=== PATIENT | male | born 1985 | race Caucasian/White ===

== ENCOUNTER 2016-10-27 02:23 | Emergency (ER) | payer OTHER ==
--- NOTE | ~2016-10-27 | CR281 ---
[facility] A Service of [facility] & [facility] / [facility] RADIOLOGY TEXT RESULTS PATIENT: SHAHNAZ HURT LOCATION: [facility] : 84 UNIT #: [id number] AGE: [address]: Augusto Berman MD SEX: M ORDER DR: [id number] [facility] [address] [place], [place] [address] [id number] E MR#: [id number] Acc #: [id number] NAME: SHAHNAZ HURT : 1985 SEX: M STUDY DATE/TIME: 10/27/2016 0211 UNIT: [facility] ROOM: STUDY DESCRIPTION: CR Wrist Min 3 View Lt Attending Physician: Augusto Berman M.D. Ordering Physician: Augusto Berman M.D. Primary Care Physician: Artemio Morel Jr., M.D. MEDICAL IMAGING REPORT This report is preliminary unless electronic signature is present EXAM Left wrist on 10/27/2016 at 0211 INDICATIONS Patient tripped and fell while walking down the street. Patient has pain in the wrist and forearm. Injury this evening. FINDINGS 3 views of the left wrist were obtained. No fracture or malalignment is seen in the wrist. The soft tissues are normal. There is a comminuted ulnar fracture in the diaphysis. IMPRESSION Ulnar diaphysis fracture. The wrist is negative. Dictated by... Terry Cordova Jr., M.D. THIS IS AN ELECTRONICALLY VERIFIED REPORT Terry Cordova Jr., M.D. at 10/28/2016 6:40 AM Hannah TD: 10/27/2016 12:39 JOB #: [id number] MEDICAL IMAGING REPORT COPY
--- NOTE | ~2016-10-27 | CT52 ---
[facility]. [facility] A Service of [facility] & [facility] RADIOLOGY TEXT RESULTS PATIENT: SHAHNAZ HURT LOCATION: [facility] : 84 UNIT #: [id number] AGE: [address]: Augusto Berman MD SEX: M ORDER DR: [id number] [facility] [address] [place], [place] [address] [id number] E MR#: [id number] Acc #: [id number] NAME: SHAHNAZ HURT : 1985 SEX: M STUDY DATE/TIME: 10/27/2016 02:04 UNIT: [facility] ROOM: STUDY DESCRIPTION: CT Cervical Spine Wo Cont Attending Physician: Augusto Berman M.D. Ordering Physician: Augusto Berman M.D. Primary Care Physician: Artemio Morel Jr., M.D. MEDICAL IMAGING REPORT This report is preliminary unless electronic signature is present EXAM Cervical spine CT, 10/27/2016 at 0204 hours. INDICATION Patient fell while walking down the street. Laceration to the posterior left side of the head. Posterior neck pain and headache. TECHNIQUE Axial images were obtained through the cervical spine without contrast. Multiplanar reformats were obtained. No comparison. This CT exam was performed with one or more of the following radiation dose reduction techniques: automatic exposure control, adjustment of mA and/or kV according to patient size, and iterative reconstruction. FINDINGS No cervical spine fractures are seen. No significant disc bulging or herniation is identified. There is no central canal or neural foraminal stenosis. No subluxation is noted on the sagittal images. The patient is positioned at an oblique angle. Additionally, there is asymmetry between the lateral masses of C1 and the dens. No fracture is seen. This may be due to position of the head relative to the spine. Ligamentous injury is not completely excluded. Exam is otherwise negative. IMPRESSION There is asymmetry of the C1/C2 articulation. No fractures are identified. The patient is positioned somewhat obliquely in the scanner and this may be a positional finding, possibly related to some turning of the head relative to the spine. This could also be related to ligamentous injury. No fractures are seen on the exam. Cervical alignment is otherwise normal. [facility] A Service of [facility] & [facility] RADIOLOGY TEXT RESULTS PATIENT: SHAHNAZ HURT [id number] 84 UNIT #: [id number] AGE: [address]: Augusto Berman MD SEX: M ORDER DR: STAT * RESULT Dictated by... Terry Cordova Jr., M.D. THIS IS AN ELECTRONICALLY VERIFIED REPORT Terry Cordova Jr., M.D. at 10/28/2016 6:40 AM RHIANNA/juan alberto TD: 10/27/2016 02:36 JOB #: [id number] MEDICAL IMAGING REPORT COPY
--- NOTE | ~2016-10-27 | EKG ---
PATIENT: SHAHNAZ HURT UNIT #: [id number] Ventricular Rate: 99 BPM Atrial Rate: 99 BPM P-R Interval: 130 ms QRS Duration: 86 ms Q-T Interval: 350 ms QTC Calculation(Bezet): 449 ms P [place]: 66 degrees Calculated R [place]: 17 degrees Calculated T [place]: 38 degrees Diagnosis Line: Normal sinus rhythm Diagnosis Line: Normal ECG Diagnosis Line: No previous ECGs available Diagnosis Line: Confirmed by ARIC BRADY MD ([id number]) on Diagnosis Line: 10/28/2016 4:06:23 PM INTERPRETING MD: CAITLYN BENAVIDES
--- NOTE | ~2016-10-27 | CR132 ---
[facility] A Service of [facility] & [facility] RADIOLOGY TEXT RESULTS PATIENT: SHAHNAZ HURT LOCATION: [facility] : 84 UNIT #: [id number] AGE: [address]: Augusto Berman MD SEX: M ORDER DR: [id number] [facility] [address] [place], [place] [address] [id number] E MR#: [id number] Acc #: [id number] NAME: SHAHNAZ HURT : 1985 SEX: M STUDY DATE/TIME: 10/27/2016 02:15 UNIT: [facility] ROOM: STUDY DESCRIPTION: CR Forearm 2 View Lt Attending Physician: Augusto Berman M.D. Ordering Physician: Augusto Berman M.D. Primary Care Physician: Artemio Morel Jr., M.D. MEDICAL IMAGING REPORT This report is preliminary unless electronic signature is present EXAM Left forearm 10/27/2016 at 02:15 INDICATION Forearm pain after falling while walking down the street tonight. FINDINGS 2 views of the forearm were obtained. There is a comminuted fracture of the diaphysis of the ulna near its midportion. Minimal displacement is seen by about one-quarter shaft width. No other fractures are identified. IMPRESSION Comminuted mildly displaced fracture near the mid shaft of the ulna. Dictated by... Terry Cordova Jr., M.D. THIS IS AN ELECTRONICALLY VERIFIED REPORT Terry Cordova Jr., M.D. at 10/28/2016 6:40 AM RHIANNA/brenda TD: 10/27/2016 12:46 JOB #: [id number] MEDICAL IMAGING REPORT COPY
--- NOTE | ~2016-10-27 | CT71 ---
[facility] A Service of [facility] RADIOLOGY TEXT RESULTS PATIENT: SHAHNAZ HURT LOCATION: [facility] : 84 UNIT #: [id number] AGE: [address]: Augusto Berman MD SEX: M ORDER DR: [id number] [facility] [address] [facility] [address] [facility] [address]. [address] [id number] E MR#: [id number] Acc #: [id number] NAME: SHAHNAZ HURT : 1985 SEX: M STUDY DATE/TIME: 10/27/2016 UNIT: [facility] ROOM: STUDY DESCRIPTION: CT Head Wo Contrast Attending Physician: Augusto Berman M.D. Ordering Physician: Augusto Berman M.D. Primary Care Physician: Artemio Morel Jr., M.D. MEDICAL IMAGING REPORT This report is preliminary unless electronic signature is present EXAM Head CT, 10/27/2016 at 0157. HISTORY Confusion. Patient fell while walking down the street tonight. Large laceration to the scalp. Headache. TECHNIQUE Axial images were obtained from the base to the vertex without contrast. This CT exam was performed with one or more of the following radiation dose reduction techniques: automatic exposure control, adjustment of mA and/or kV according to patient size, and iterative reconstruction.. COMPARISON STUDIES No comparison. FINDINGS No skull fracture. Ventricular size and configuration are within normal limits. No acute infarct or hemorrhage is seen. There are no masses. Scalp lacerations are noted posteriorly, and there is a scalp hematoma in the left occipital region, measuring about 3.1 x 1.1 cm. IMPRESSION Left posterior scalp hematoma and laceration. Otherwise, negative head CT. Dictated by... Terry Cordova Jr., M.D. THIS IS AN ELECTRONICALLY VERIFIED REPORT Terry Cordova Jr., M.D. at 10/28/2016 6:40 AM RHIANNA/yoel [facility] A Service of [facility] RADIOLOGY TEXT RESULTS PATIENT: SHAHNAZ HURT LOCATION: [facility] : 84 UNIT #: [id number] AGE: [address]: Augusto Berman MD SEX: M ORDER DR: TD: 10/27/2016 13:08 JOB #: [id number] MEDICAL IMAGING REPORT COPY
[2016-10-27 02:02] LABS: BASOPHIL# 0.1 X10e3 (0-0.3); BASOPHIL% 0.7 % (0-2.5); EOSINOPHIL# 0.1 X10e3 (0-0.7); EOSINOPHIL% 0.6 % (0.0-7.0); HEMOGLOBIN 15.4 gm/dL (13.0-16.0); LYMPHOCYTE# 1.8 X10e3 (1.0-3.5); LYMPHOCYTE% 12.6 % (17.0-45.0); MEAN CELL VOLUME 88.6 FL (83-96); MEAN CORPUSCULAR HEMOGLOBIN 30.3 PG (28-34); MEAN CORPUSCULAR HGB CONC 34.2 g/dL (30-36); MEAN PLATELET VOLUME 8.2 FL (6.5-11.5); MONOCYTE% 7.3 % (3.0-12.0); NEUTROPHIL# 11.1 X10e3 (1.5-7.1); NEUTROPHIL% 78.8 % (40-75); PLATELET COUNT 290 X10e3 (140-420); RED BLOOD COUNT 5.08 X10e (3.90-5.60); RED CELL DISTRIBUTION WIDTH 13.5 % (11.0-15.5); WHITE BLOOD COUNT 14.1 X10e3 (4.0-10.5)
[2016-10-27 02:03] LABS: DIFF IND NO
[2016-10-27 02:17] LABS: PARTIAL THROMBOPLASTIN TIME 27.8 SECONDS (23.5-31.3); PROTHROMBIN TIME (PATIENT) 10.8 SECONDS (9.6-11.5)
[~2016-10-27 02:23] MED LIST: COGENTIN; GEODAN; LITHIUM
[2016-10-27 02:31] LABS: ALBUMIN SERUM 4.2 g/dL (3.5-5.0); ALKALINE PHOSPHATASE 73 U/L (32-92); ALT (SGPT) 16 U/L (10-40); AST (SGOT) 21 U/L (10-42); BILIRUBIN,TOTAL 0.5 mg/dL (0.2-2.0); BLOOD UREA NITROGEN 8 mg/dL (9-23); BUN/CREATININE RATIO 6.66; CALCIUM SERUM 8.5 mg/dL (8.4-10.2); CARBON DIOXIDE 30 mmol/L (22-31); CHLORIDE 103 mmol/L (100-111); CREATININE SERUM 1.2 mg/dL (0.6-1.4); GLOM FILT RATE Estimated ABOVE60 mL/min (>60); GLUCOSE FASTING 114 mg/dL (70-110); POTASSIUM 3.6 mmol/L (3.5-5.1); SODIUM 135 mmol/L (135-145)
[2016-10-27 04:43] LABS: AMPHETAMINE POS (NEG); BARBITURATES NEG (NEG); BENZODIAZEPINES NEG (NEG); COCAINE NEG (NEG); MARIJUANA POS (NEG); OPIATES NEG (NEG); TRICYCLIC ANTIDEPRESSANTS NEG (NEG); U METHADONE NEG (NEG)
== END 2016-10-27 07:50 | disposition home or self-care (01) ==
LOC: CED 02:23
PROVIDERS: Emergency Medicine
DX: S52.252A Displaced comminuted fracture of shaft of ulna, left arm, initial encounter for closed fracture (principal); S01.01XA Laceration without foreign body of scalp, initial encounter; F31.9 Bipolar disorder, unspecified; W18.30XA Fall on same level, unspecified, initial encounter
CPT/HCPCS: 12035; 36415; 70450; 72125; 73090; 73110; 80053; 80178; 80307; 85025; 85610; 85730; 93005; 99284; G0480

== ENCOUNTER 2016-11-10 16:12 | Emergency (ER) | payer OTHER | END 2016-11-10 17:17 | disposition home or self-care (01) | LOC: CFTX 16:12 | DX: S01.01XD Laceration without foreign body of scalp, subsequent encounter (principal); F17.210 Nicotine dependence, cigarettes, uncomplicated; F20.9 Schizophrenia, unspecified; X58.XXXD Exposure to other specified factors, subsequent encounter | CPT/HCPCS: 99281 ==

== ENCOUNTER 2017-01-03 19:00 | Inpatient (IN) | payer OTHER ==
--- NOTE | ~2017-01-03 | HP ---
Unit #: [id number] #: [id number] Patient: SHAHNAZ HURT [id number] [place] [address] [id number] I MR#: [id number] NAME: SHAHNAZ HURT ROOM: P257 Age: 31 Sex: M Admission Date: 01/03/2017 : 1985 Attending Physician: Ted Gaffney M.D. Admitting Physician: Ted Gaffney M.D. Primary Care Physician: Primary Care Physician No HISTORY AND PHYSICAL HISTORY OF PRESENT ILLNESS The patient is a 31-year-old male, who states that his parents had a mental inquest warrant taken out on him although he states he does not know why. PAST MEDICAL HISTORY Significant for depression. PAST SURGICAL HISTORY None. ALLERGIES None. SOCIAL HISTORY Positive for smoking, negative for alcohol, positive for methamphetamine. FAMILY HISTORY Noncontributory. REVIEW OF SYSTEMS CONSTITUTIONAL: No fever or chills. HEENT: Denies any sore throat, ear pain or runny nose. CARDIOVASCULAR: Denies chest pain, irregular heart rhythm or palpitations. CHEST: Denies shortness of breath or cough. No hemoptysis. GASTROINTESTINAL: Denies nausea, vomiting, diarrhea or chronic constipation. ENDOCRINE: Denies history of increased thirst or urination. No recent significant weight loss or gain. GENITOURINARY: Denies dysuria, frequency, or hematuria. SKIN: Denies any rashes. HEMATOLOGIC: Denies history of increased bleeding or bruising. MUSCULOSKELETAL: Denies any hot, swollen joints. No generalized muscle pain. NEUROLOGIC: Denies problems with vision or speech. No frequent, severe headaches. No numbness, tingling or weakness in any extremities. Denies loss of bladder or bowel control. CURRENT MEDICATIONS 1. Abilify 30 mg p.o. daily 2. Hydroxyzine 25 mg p.o. daily p.r.n. 3. [place] 150 mg p.o. q.h.s. 4. [place] 600 mg p.o. twice daily Unit #: [id number] #: [id number] Patient: SHAHNAZ HURT 5. Flexeril 10 mg p.o. three times daily p.r.n. PHYSICAL EXAMINATION GENERAL: Alert, oriented, and no acute distress. VITAL SIGNS: Temperature 97.7, heart rate 93, respirations 16, and blood pressure 105/68. HEIGHT: 5 feet 8 inches. WEIGHT: 180 pounds. SKIN: Warm and dry without rash or lesion. Multiple tattoos right arm, left arm, right subscapular area, left hand. HEENT: Normocephalic. TMs not viewed. Oral and nasal passages clear. Conjunctivae clear. PERRLA. EOMs intact. NECK: Supple without lymphadenopathy or thyromegaly. HEART: Regular rate and rhythm without murmur. LUNGS: Clear. ABDOMEN: Soft, nontender. : Not done. EXTREMITIES: No evidence of cyanosis, clubbing or edema. Moves all without focal deficit. NEUROLOGICAL: Grossly within normal limits. Cranial Nerves: II: Visual triplett are intact. III, IV AND : Extraocular movements are intact. Pupils are equal, round and reactive to light. V: Facial sensation is grossly normal. VII: Facial movements and expression are normal. VIII: Auditory acuity grossly intact. IX, X: Uvula is midline. Phonation is normal. XI: Patient shrugs shoulders and turns head normally. XII: Tongue protrudes in the midline. Sensory and Motor Function: Sensory and motor sensation is grossly normal. Motor: moves all extremities well. Coordination: Gait is normal. Deep Tendon Reflexes: Intact. IMPRESSION Psychiatric admission. RECOMMENDATIONS Psychiatric, per psychiatrist. MEDICAL No contraindications to participating in facility's activities. MEDICAL PROGNOSIS Good. Dictated by... Spike Kahn/dina TD: 01/05/2017 09:18 JOB #: [id number] Unit #: [id number] #: [id number] Patient: SHAHNAZ HURT HISTORY AND PHYSICAL Page 1 of 1 X Macrina Salazar APR X HISTORY AND PHYSICAL
--- NOTE | ~2017-01-03 | PN ---
Unit #: [id number] #: [id number] Patient: DERRICK HURT [id number] [facility] [address] [place] [address] [id number] I MR#: [id number] NAME: DERRICK HURT ROOM: P257 Age: 31 Sex: M Admission Date: 01/03/2017 : 1985 Attending Physician: Ted Gaffney M.D. Admitting Physician: Ted Gaffney M.D. Primary Care Physician: Primary Care Physician Nimo BARONE PROGRESS NOTES DATE 01/06/2017 DISCUSSION Derrick continues to be compliant with medications. He is irritable and his mood is with flat affect. He is alert and fully oriented although he still does not accept his situation as regarding his MIW. Memory and concentration are fair and his thought processes are stilted with some evidence of paranoia. ASSESSMENT Schizophrenia, paranoid type. PLAN We will continue current treatment plan and anticipate his MIW hearing soon. Dictated by... Raciel Cuevas/dina TD: 01/07/2017 06:40 JOB #: [id number] [facility] PROGRESS NOTES Page 1 of 1 X Ted Gaffney MD X PROGRESS NOTE
--- NOTE | ~2017-01-03 | PN ---
Unit #: [id number] #: [id number] Patient: DERRICK HURT [id number] [facility] [address] [place] [address] [id number] I MR#: [id number] NAME: DERRICK HURT ROOM: P257 Age: 31 Sex: M Admission Date: 01/03/2017 : 1985 Attending Physician: Ted Gaffney M.D. Admitting Physician: Ted Gaffney M.D. Primary Care Physician: Primary Care Physician Nimo BARONE PROGRESS NOTES DATE 01/07/2017 DISCUSSION Derrick continues to be somewhat irritable and agitated. He has not made any threats towards his family but has very poor insight and continually asks to leave the hospital. Mood is irritable with a decreased range of affect. He is alert and oriented to person, location, time but not situation. Memory and concentration are only fair and his thought processes continue to demonstrate some evidence of paranoia. ASSESSMENT Schizophrenia, paranoid type. PLAN We will proceed with MIW hearing today and continue current medications. Dictated by... Raciel Cuevas/hattie TD: 01/10/2017 20:29 JOB #: [id number] [facility] PROGRESS NOTES Page 1 of 1 X Ted Gaffney MD PROGRESS NOTE
--- NOTE | ~2017-01-03 | DS ---
Unit #: [id number] #: [id number] Patient: DERRICK HURT [id number] [facility] [address] [place] [address] [id number] I MR#: [id number] NAME: DERRICK HURT ROOM: P257 Age: 31 Sex: M Admission Date: 01/03/2017 : 1985 Discharge Date: 01/09/2017 Attending Physician: Ted Gaffney M.D. Primary Care Physician: Primary Care Physician No DISCHARGE SUMMARY REASON FOR ADMISSION Derrick is a 31-year-old man with a history of bipolar disorder versus schizophrenia, who reported he was on a mental inquest warrant after becoming physically and verbally aggressive with his father after becoming noncompliant with his medications. The mental inquest warrant was upheld at the [facility] DIAGNOSTIC STUDIES LABORATORY RESULTS: Initial lithium level was low at 0.4, but discharge lithium level was 0.7. Comprehensive metabolic panel showed normal kidney and liver functions. HOSPITAL COURSE Derrick was admitted and placed on suicide precautions. [facility] [place] was restarted together with Abilify. The patient had minimal insight, frequently requesting discharge despite my explanations of his mental inquest warrant status. He did become agitated, and I believe that this may have been due to some aching seizure caused by his Abilify. His family also expressed the opinion that his Abilify was making him worse and this was changed to Zyprexa 10 mg at bedtime with better benefit. The patient was compliant with medications throughout hospitalization and showed no signs of aggression, although, he was irritable when his request for discharge was denied. The NHW probable cause hearing found probable cause, but the patient was able to contract for safety 2 days later and his family felt he was appropriate to return home. DISCHARGE DIAGNOSES AXIS I: Schizophrenia, paranoid type. AXIS II: No diagnosis. AXIS III: None acute. AXIS IV: AXIS V: DISCHARGE INSTRUCTIONS Follow up with [facility]. DISCHARGE MEDICATIONS [facility] 600 mg in the morning and 750 mg at bedtime for mood stability, Zyprexa 10 mg at bedtime for psychosis. CONDITION AT DISCHARGE Unit #: [id number] #: [id number] Patient: DERRICK HURT Improved. PROGNOSIS Fair to good if the patient maintains compliance and followup. DIET AND ACTIVITY Ad juan f. Dictated by... Raciel Cuevas/alec TD: 01/09/2017 21:08 JOB #: [id number] DISCHARGE SUMMARY Page 1 of 1 X Ted Gaffney MD X DISCHARGE SUMMARY
--- NOTE | ~2017-01-03 | PA ---
Unit #: [id number] #: [id number] [facility] [id number] [facility] [address] [place] [address] [id number] MR#: [id number] NAME: SHAHNAZ HURT ROOM: P257 Age: 31 Sex: M Admission Date: 01/03/2017 : 1985 Date of Assessment: Attending Physician: Ted Gaffney M.D. Admitting Physician: Ted Gaffney M.D. Primary Care Physician: Primary Care Physician No PSYCHIATRIC ASSESSMENT DATE OF ASSESSMENT 01/04/2017. INFORMANTS The patient, partially reliable; [facility], reliable; and [facility], reliable. CHIEF COMPLAINT "I don't know why I am here." HISTORY OF PRESENT ILLNESS Mr. Hurt is a 31-year-old man with a history of schizophrenia and previous admissions to this facility. Apparently, the patient became noncompliant with his medications in the outpatient setting and became physically and verbally aggressive with his father. His father took out a mental inquest warrant and after evaluation at [facility], the warrant was upheld and Mr. Cordon was transferred back to [facility] for re-initiation of treatment. PAST PSYCHIATRIC HISTORY Last admission to this facility was in 08/2016. He receives his current treatment through [facility]. He has been noncompliant with medications. FAMILY PSYCHIATRIC HISTORY Bipolar and schizophrenia run in the family. SOCIAL HISTORY The patient has no history of abuse, is single, and with no children. He is currently on long-term disability and living with his family. PAST MEDICAL HISTORY No chronic medical problems. MEDICATIONS None currently. ALLERGIES No known medication allergies. SUBSTANCE ABUSE HISTORY None reported. MENTAL STATUS EXAMINATION Unit #: [id number] #: [id number] Patient: SHAHNAZ HURT presented as a neatly dressed and groomed man, who appeared his stated age. He was irritable and somewhat uncooperative with the examination. His speech was terse, but easily understood. Musculoskeletal examination demonstrated mild psychomotor agitation. His mood was irritable with a flat affect. He was alert and oriented to person, location, and time, but not situation. His memory and concentration were fair. His thought processes appeared stilted with evidence of paranoia and aggressive thoughts. He denied suicidal or homicidal ideation. Insight and judgment were fair. Fund of knowledge and abstraction were fair to good. ASSETS AND LIABILITIES The patient is youthful and has supportive family. Liabilities include noncompliance with medication and involuntary status. ADMITTING DIAGNOSES AXIS I: Schizophrenia of paranoid type. AXIS II: No diagnosis. AXIS III: None acute. AXIS IV: AXIS V: PSYCHIATRIC PLAN The patient was admitted and placed on suicide precautions. Previous medications were confirmed and will be restarted and we will comply with the mental inquest warrant process throughout the hospitalization. TREATMENT GOALS Improvement in psychosis, improvement in insight, reduction and hostility. DISCHARGE PLANNING The patient will follow up with [facility]. ESTIMATED LENGTH OF STAY 5 days. Dictated by... Ted Gaffney M.D. DANIELA/alec TD: 01/07/2017 05:22 JOB #: [id number] PSYCHIATRIC ASSESSMENT Page 1 of 1 X Ted Gaffney MD X PSYCHIATRIC ASSESSMENT
--- NOTE | ~2017-01-03 | PN ---
Unit #: [id number] #: [id number] Patient: SHAHNAZ HURT [id number] [facility] [address] [place] [address] [id number] I MR#: [id number] NAME: SHAHNAZ HURT ROOM: P257 Age: 31 Sex: M Admission Date: 01/03/2017 : 1985 Attending Physician: Ted Gaffney M.D. Admitting Physician: Ted Gaffney M.D. Primary Care Physician: Primary Care Physician Nimo CROFT NOTES DATE OF SERVICE 01/08/2017 DISCUSSION Shahnaz is somewhat irritable and agitated this morning, claiming that the county judge said "I can go home" when in fact he was held against his will for probable cause. The patient has difficulty processing this and is quite demanding about leaving the hospital. I feel that he may be experiencing some akathisia from his Abilify, and this is confirmed by a message from his family that states they believe Abilify "make him worse". He is not agreeable to engage in detailed conversation about his therapeutic plan, but he did agree to a change in his antipsychotic medication. His lithium level was therapeutic this morning at 0.7. ASSESSMENT Schizophrenia paranoid type. PLAN We will change Abilify to Zyprexa 10 mg at bedtime. We will continue lithium at its current dose. Dictated by... Ted Gaffney M.D. [facility]/to TD: 01/11/2017 09:55 JOB #: [id number] [facility] PROGRESS NOTES Page 1 of 1 X Ted Gaffney MD X PROGRESS NOTE
[2017-01-09 10:24] LABS: ALBUMIN SERUM 4.4 g/dL (3.5-5.0); BILIRUBIN,TOTAL 0.7 mg/dL (0.2-2.0); CALCIUM SERUM 9.7 mg/dL (8.4-10.2); CREATININE SERUM 0.9 mg/dL (0.6-1.4); GLOM FILT RATE Estimated 112.6 mL/min (>60); POTASSIUM 4.6 mmol/L (3.5-5.1); PROTEIN TOTAL SERUM 7.3 g/dL (6.0-8.3)
== END 2017-01-09 12:15 | disposition home or self-care (01) | DRG 885 ==
LOC: P2L 23:02
PROVIDERS: Psychiatry & Neurology Psychiatry
DX: F20.0 Paranoid schizophrenia (principal); R45.851 Suicidal ideations; F31.60 Bipolar disorder, current episode mixed, unspecified; F17.210 Nicotine dependence, cigarettes, uncomplicated
CPT/HCPCS: 80053; 80178